=== PATIENT | female | born 1955 | race Caucasian/White ===

== ENCOUNTER → 2019-09-24 08:40 | Outpatient (BNVA) | payer OTHER, SELFPAY | PROVIDERS: Family Provider Nurse Practitioner Family; PCP Nurse Practitioner Family; Visit Provider Nurse Practitioner Family | DX: N39.0 Urinary tract infection, site not specified (principal); R19.7 Diarrhea, unspecified; R10.11 Right upper quadrant pain; R30.0 Dysuria | CPT/HCPCS: 80053; 81003; 87077; 87086; 87186 ==

== ENCOUNTER → 2019-09-30 08:00 | Outpatient (BNVA) | payer OTHER, SELFPAY | PROVIDERS: Family Provider Nurse Practitioner Family; PCP Nurse Practitioner Family; Visit Provider Nurse Practitioner Family | DX: R19.7 Diarrhea, unspecified (principal) | CPT/HCPCS: 87205; 87506 ==

== ENCOUNTER → 2019-10-22 08:30 | Outpatient (BNVA) | payer OTHER, SELFPAY | PROVIDERS: Family Provider Nurse Practitioner Family; PCP Nurse Practitioner Family; Visit Provider Nurse Practitioner | DX: K59.00 Constipation, unspecified (principal) | CPT/HCPCS: 74018; 80053; 85025 ==

== ENCOUNTER → 2019-10-25 10:49 | Outpatient (BNVA) | payer OTHER, SELFPAY | PROVIDERS: Family Provider Nurse Practitioner Family; PCP Nurse Practitioner Family; Visit Provider Nurse Practitioner | DX: K59.00 Constipation, unspecified (principal) | CPT/HCPCS: 74018; 81000 ==

== ENCOUNTER 2019-10-26 08:51 | Outpatient (CLI) | payer OTHER, SELFPAY ==
--- NOTE | 2019-10-26 08:58 | XR_ITS ---
WS: [id number] LUMBAR SPINE: 3 VIEWS TECHNIQUE: AP, lateral and L5-S1 spot. HISTORY: pain and constipation COMPARISON: None available. Mild LEFT convex curvature of the lumbar spine. Moderate disc space narrowing at L5-S1. No fractures. Mild facet joint arthritis at L5-S1. SI joints are symmetric bilaterally. No soft tissue abnormalities. XR/XR lumbar spine 2-3V* [id number] IMPRESSION: Mild RIGHT convex curvature. Moderate degenerative disc disease at L5-S1.
--- NOTE | 2019-10-26 08:58 | XR_ITS ---
WS: [id number] THORACIC SPINE TECHNIQUE: AP and lateral views are performed. HISTORY: pain back COMPARISON: None available. Mild LEFT convex curvature the thoracic spine. Pedicles are all identified. Slight increase in thorac ic kyphosis with mild disc space narrowing. Most significant disc space narrowing is at T8-9. XR/XR thoracic spine 3V* [id number] IMPRESSION: Mild increase in kyphosis and spondylosis. No acute findings.
== END 2019-10-26 08:52 | disposition home or self-care (01) ==
LOC: RADWPI 08:56
PROVIDERS: Family Provider Nurse Practitioner Family; PCP Nurse Practitioner Family; Visit Provider Nurse Practitioner
DX: M54.9 Dorsalgia, unspecified (principal); K59.00 Constipation, unspecified; M40.204 Unspecified kyphosis, thoracic region; M47.814 Spondylosis without myelopathy or radiculopathy, thoracic region; M51.37 Other intervertebral disc degeneration, lumbosacral region
CPT/HCPCS: 72072; 72100

== ENCOUNTER 2019-11-11 06:13 | Day surgery (SDC) | payer OTHER, SELFPAY ==
[2019-11-09 14:08] VITALS: BMI 30.1
--- NOTE | 2019-11-11 06:29 | ANES.PREANE2 ---
Pre-Anesthetic Assessment Pre-Anesthetic Assessment: Height/Weight: Height 1.6 m Weight 77.111 kg Preop Diagnosis: GERD, constipation, hematuria Proposed Procedure: Operation Date: 11/11/19 07:35 Proposed Procedures p EGD/COLON 96125 [id number] K21.9 K59.00 start 0900(Not Applicable) - Angel Boss MD s Colonoscopy(Not Applicable) - Angel Boss MD Familial anesthetic complications: PONV, shivering Was Beta Irma taken within 24 hours: N/A Last intake: NPO > 8 hrs Social: Social History: No alcohol and No tobacco Exam: Pre-Anes Outpt Exam: alert, oriented x 3, clear to auscultation bilaterally and regular rate & rhythm Airway: Cervical ROM: WNL MP: 2 Additional comments: missing History/ROS: No significant complaints : : UTI (Hx of UTI) Hepatic: Comments: hx liver resection - cyst GI: GI: GERD Anesthetic Plan: ASA status: 1 Anesthesia: MAC Risk of > 500 ml blood loss (7ml/kg in children): No PFSH Anesthesia PFSH: Medical History Constipation Depression GERD (gastroesophageal reflux disease) Insomnia Interstitial cystitis Surgical History H/O cystoscopy History of colonoscopy History of esophagogastroduodenoscopy (EGD) History of hysterectomy History of resection of liver History of tonsillectomy Family History Other Bleeding disorder CHF (congestive heart failure) COPD (chronic obstructive pulmonary disease) Myocardial infarct Denies family history of Anesthesia complication Social History Smoking and tobacco status: never smoked Second hand smoke exposure: No Smoking risk assessment/counseling performed?: No Alcohol intake: never Desire information about alcohol rehabilitation?: No Counseling given: No Desire information about substance/drug rehabilitation?: No Counseling given: No Adopted: Yes Caregiver/support person: No Lives independently: Yes Household members: spouse Housing: House Marital status: Number of children: 1 service: No Current occupational status: employed Current occupation: [employer] History of recent travel: No Current gender identity: Female Data Anesthesia Cardiac Studies: No Data to Display
[2019-11-11 06:31] VITALS: BP 150/92; PULSE 84; RESP 18; TEMP 36.2; O2SAT 97
[2019-11-11] MEDS: sodium chloride 0.9% 1,000 ML 30 ML IV (06:41)
--- NOTE | 2019-11-11 09:13 | W.PM.OPSUD ---
Surgery/Procedure H&P Update DATE OF PROCEDURE: November 11, 2019 DATE H&P PERFORMED: 11/05/19 H&P UPDATE INFORMATION: I have reviewed H&P completed within last 30 days, I have examined patient prior to procedure and No changes to prior documentation PREOP DIAGNOSIS: GERD, constipation, hematuria PLANNED PROCEDURE: Operation Date: 11/11/19 07:35 Proposed Procedures p EGD/COLON 00208 [id number] K21.9 K59.00 start 0900(Not Applicable) - Angel Boss MD s Colonoscopy(Not Applicable) - Angel Boss MD
[2019-11-11 09:41] VITALS: BP 146/75; PULSE 95; RESP 16; TEMP 36.3; O2SAT 97
--- NOTE | 2019-11-11 09:45 | ANE.PACU2 ---
Inpatient post-anesthesia follow up: Airway intact: Yes Vital signs: Temperature 97.4 F Pulse Rate 95 Respiratory Rate 16 Blood Pressure 146/75 Pulse Oximetry 97 Oxygen Delivery Me thod Nasal Cannula Oxygen Flow Rate 2.0 Fraction of Inspir ed Oxygen Hydration adequate: Yes Nausea and vomiting: No Pain level: 1 Mental status: Baseline
[2019-11-11 10:13] VITALS: BP 143/82; PULSE 90; RESP 18; O2SAT 96
== END 2019-11-11 10:17 | disposition home or self-care (01) ==
PROVIDERS: PCP Nurse Practitioner; Visit Provider Surgery
PROC: 0DJ08ZZ Inspection of Upper Intestinal Tract, Via Natural or Artificial Opening Endoscopic (ICD-10-PCS; CPT 43235; principal; 2019-11-11 07:35)
PROC: 0DJD8ZZ Inspection of Lower Intestinal Tract, Via Natural or Artificial Opening Endoscopic (ICD-10-PCS; CPT 45378; 2019-11-11 07:35)
DX: K59.00 Constipation, unspecified (principal); K21.9 Gastro-esophageal reflux disease without esophagitis; F32.9 Major depressive disorder, single episode, unspecified; Z82.49 Family history of ischemic heart disease and other diseases of the circulatory system
CPT/HCPCS: 12345; 43239; 45378; 88305; J2001; J2704; J7030

== ENCOUNTER 2019-11-19 12:48 | Outpatient (CLI) | payer OTHER, SELFPAY ==
--- NOTE | 2019-11-19 13:00 | CT_ITS ---
WS: [id number] CT ABDOMEN PELVIS TECHNIQUE: Noncontrast CT of the abdomen and pelvis with coronal and sagittal reformatted images. CLINICAL INFORMATION: pneumaturia, r/o fistula COMPARISON: None. DLP: 1131.[address] scans at [facility] use at least one of these dose optimization techniques: automat ed exposure control; mA and/or kV adjustment per patient size (includes targeted exams where dose is matched to clinical indication); or iterative reconstruction. FINDINGS: Noncontrast liver is normal. Incidental right hepatic cyst measuring 1.1 cm. Prior hysterectomy. Gall bladder appears normal. Prior resection of the left hepatic lobe. Noncontrast spleen is normal. Jasmin l noncontrast pancreas. Small esophageal hiatal hernia. Mild circumferential thickening of the distal esophagus. Diffuse thickening of the gastric rugae likely due to gastritis. Bilateral renal cortical atrophy. Lung bases are well aerated. Normal caliber abdominal aorta. Normal sigmoid colon. No significant constipation. Normal caliber small and large bowel. No para-aortic or retroperitoneal lymphadenopathy. No pelvic lymphadenopathy. No inguinal lymphadenopathy. Small incide ntal fat-containing supraumbilical and umbilical hernias. No herniated bowel. Disc space narrowing L5 -S1. CT/CT abdomen pelvis wo con [id number] IMPRESSION: 1. Prior postoperative changes resection of the left hepatic lobe. 2. Small right hepatic cyst measuring 1.1 cm. 3. Small esophageal hiatal hernia with mild distal esophageal thickening. Thic kening of the gastric rugae. Findings likely due to reflux esophagitis with gas tritis. This can be further evaluated with endoscopy. 4. Normal caliber small and large bowel. No significant constipation. 5. Small fat-containing supraumbilical and umbilical hernias. 6. No other significant findings.
== END 2019-11-19 12:49 | disposition home or self-care (01) ==
LOC: RADWPI 12:50
PROVIDERS: PCP Nurse Practitioner; Visit Provider Surgery
DX: R39.89 Other symptoms and signs involving the genitourinary system (principal); K76.89 Other specified diseases of liver; K44.9 Diaphragmatic hernia without obstruction or gangrene; K42.9 Umbilical hernia without obstruction or gangrene
CPT/HCPCS: 74176

== ENCOUNTER → 2020-03-27 13:47 | Outpatient (BNVA) | payer OTHER, SELFPAY | PROVIDERS: PCP Nurse Practitioner; Visit Provider Nurse Practitioner Family | DX: R31.9 Hematuria, unspecified (principal) | CPT/HCPCS: 80053; 81000; 81003 ==